=== PATIENT | male | born 2005 | race Caucasian/White ===

== ENCOUNTER 2025-04-24 14:34 | Outpatient (CLI) | payer BC, SELFPAY ==
[2025-04-24 15:09] LABS: Hemoglobin* 13.6 gm/dL (13.5-17.5)
== END 2025-04-24 14:35 | disposition home or self-care (01) ==
PROVIDERS: Visit Provider Family Medicine
DX: R53.83 Other fatigue (principal)
CPT/HCPCS: 36415; 82728; 85018